=== PATIENT | male | born 1970 | race Caucasian/White ===

== ENCOUNTER 2016-10-10 15:05 | Emergency (ER) | payer OTHER ==
[~2016-10-10] VITALS: Ht 182.9 cm; Wt 103.6 kg
[~2016-10-10 15:05] MED LIST: DOCU-94 PO; LISI-725 PO; MAGN400T6 PO; VGR50 PO
[2016-10-10 15:09] VITALS: TEMP 36.7; Ht 182.9 cm; Wt 103.6 kg
[2016-10-10] MEDS ORDERED: SODIUM CHLORIDE 0.9% 1000ML 1,000 ML IV STA (15:28)
[2016-10-10] MEDS ORDERED: KETOROLAC TROMETHAMINE 30 MG/ML VIAL IV STA (15:28)
[2016-10-10] MEDS ORDERED: MULT-513 PO (15:35)
[2016-10-10 15:52] LABS: BASO % 0.1 %; BASO ABS # 0.01 K/uL (0-0.2); COMPLETE YES; EOS % 0.6 %; HEMATOCRIT 43.5 % (42-52); IG% 0.3 %; LYMPH % 5.7 %; LYMPH ABS # 0.44 K/uL (1.2-3.4); MEAN CELL VOLUME 90.8 fL (80-100); MEAN CORPUSCULAR HEMOGLOBIN 31.3 pg (25-34); MEAN CORPUSCULAR HGB CONC 34.5 g/dl (32-36); MEAN PLATELET VOLUME 9.5 fL (7.4-10.4); MONO % 5.2 %; NEUT % 88.1 %; PLATELET COUNT 245 K/uL (130-400); RED BLOOD COUNT 4.79 M/uL (4.7-6.1); WHITE BLOOD COUNT 7.74 K/uL (4.8-10.8)
[2016-10-10] MEDS ORDERED: IBUP-1050 PO (15:52)
[2016-10-10] MEDS ORDERED: MAGN400T7 PO (15:52)
[2016-10-10] MEDS ORDERED: VITA10004 PO (15:52)
[2016-10-10] MEDS ORDERED: IMT50 PO (15:52)
[2016-10-10] MEDS ORDERED: LSN20 PO (15:52)
[2016-10-10] MEDS ORDERED: SULF800T23 PO (15:52)
[2016-10-10 16:11] LABS: BUN/CREATININE RATIO 15.3 (10-20); CALCIUM 8.8 mg/dl (8.5-10.1); CREATININE 1.1 mg/dl (0.60-1.40); POTASSIUM 4.1 mmol/L (3.5-5.1)
--- NOTE | 2016-10-10 16:19 | EMERGENCY ROOM VISIT NOTE ---
History First contact with patient: 15:12 Chief Complaint: ILLNESS Stated Complaint: REFERRED TO CHECK SEPSIS INFECTION History of Present Illness The patient is a 46 year old male who presents to the Emergency Room with complaints of swelling and pain under his left axilla. The patient states that one week ago, he developed a lump under his left axilla. He states it gradually became larger and more painful over the week. He was seen at [facility] yesterday and prescribed Bactrim. He has also been taking ibuprofen for the pain. He states that this morning while at work, he began to feel weak. He has had joint aches. He has not had much of an appetite. He states that this morning, the lump "popped" and began to feel much better. He reports calling [facility] and they recommended that he come here to rule out sepsis. The patient denies any fevers. He denies any red streaking surrounding the lump. Review of Systems A complete 10 point review of systems was reviewed with the patient with pertinent positives and negatives as per history of present illness. All else were negative. Past Medical/Surgical History Medical Problems: (1) Hypertension Family History Hypertension Social History Smoking Status: Never Smoker Marital Status: Housing Status: lives with significant other Current/Historical Medications Scheduled Ibuprofen (Advil), 400 MG PO TID Lisinopril (Lisinopril), 20 MG PO DAILY Magnesium Oxide (Mg Supplement (Magnesium Oxide), 241.3 MG PO DAILY Multivitamins/Minerals (Mvi With Minerals), 1 TAB PO DAILY Sulfa/Trimethoprim (Bactrim Ds 800MG/160MG), 1 TAB PO BID Vitamin E (Vitamin E), 1,000 INTER.UNIT PO DAILY Scheduled PRN Sumatriptan Succinate (Sumatriptan Succinate), 50 MG PO UD PRN for Migraine Allergies Coded Allergies: Amoxicillin (Verified Allergy, Intermediate, Rash, 10/10/16) Physical Exam Vital Signs Date Time Temp Pulse Resp B/P (MAP) Pulse Ox O2 Delivery O2 Flow Rate FiO2 10/10/16 16:57 79 18 139/78 96 Room Air 10/10/16 15:09 36.7 85 18 133/82 99 Room Air Physical Exam VITALS: Vitals are noted on the nurse's note and reviewed by myself. Vital signs stable. GENERAL: This is a 46-year-old male, in no acute distress, nondiaphoretic, well- developed well-nourished. SKIN: There is an erythematous lump in the left axilla with mild induration. It is draining a small amount of purulent drainage centrally. NECK: Supple without nuchal rigidity. No lymphadenopathy. HEART: Regular rate and rhythm without murmurs gallops or rubs. LUNGS: Clear to auscultation bilaterally without wheezes, rales or rhonchi. . NEURO: Patient was alert and oriented to person place and time. Medical Decision & Procedures Laboratory Results 10/10/16 15:35 Red Blood Count 4.79, Mean Corpuscular Volume 90.8, Mean Corpuscular Hemoglobin 31.3, Mean Corpuscular Hemoglobin Concent 34.5, Mean Platelet Volume 9.5, Neutrophils (%) (Auto) 88.1, Lymphocytes (%) (Auto) 5.7, Monocytes (%) (Auto) 5.2, Eosinophils (%) (Auto) 0.6, Basophils (%) (Auto) 0.1, Neutrophils # (Auto) 6.82, Lymphocytes # (Auto) 0.44, Monocytes # (Auto) 0.40, Eosinophils # (Auto) 0.05, Basophils # (Auto) 0.01 10/10/16 15:35 Test 10/10/16 15:35 White Blood Count 7.74 K/uL (4.8-10.8) Red Blood Count 4.79 M/uL (4.7-6.1) Hemoglobin 15.0 g/dL (14.0-18.0) Hematocrit 43.5 % (42-52) Mean Corpuscular Volume 90.8 fL (80-100) Mean Corpuscular Hemoglobin 31.3 pg (25-34) Mean Corpuscular Hemoglobin Concent 34.5 g/dl (32-36) Platelet Count 245 K/uL (130-400) Mean Platelet Volume 9.5 fL (7.4-10.4) Neutrophils (%) (Auto) 88.1 % Lymphocytes (%) (Auto) 5.7 % Monocytes (%) (Auto) 5.2 % Eosinophils (%) (Auto) 0.6 % Basophils (%) (Auto) 0.1 % Neutrophils # (Auto) 6.82 K/uL (1.4-6.5) Lymphocytes # (Auto) 0.44 K/uL (1.2-3.4) Monocytes # (Auto) 0.40 K/uL (0.11-0.59) Eosinophils # (Auto) 0.05 K/uL (0-0.5) Basophils # (Auto) 0.01 K/uL (0-0.2) RDW Standard Deviation 43.6 fL (36.4-46.3) RDW Coefficient of Variation 13.2 % (11.5-14.5) Immature Granulocyte % (Auto) 0.3 % Immature Granulocyte # (Auto) 0.02 K/uL (0.00-0.02) Anion Gap 8.0 mmol/L (3-11) Est Creatinine Clear Calc Drug Dose 104.5 ml/min Estimated GFR () 92.8 Estimated GFR (Non- 80.1 BUN/Creatinine Ratio 15.3 (10-20) Lactic Acid Level 1.2 mmol/L (0.4-2.0) Calcium Level 8.8 mg/dl (8.5-10.1) Total Bilirubin 0.8 mg/dl (0.2-1) Direct Bilirubin 0.1 mg/dl (0-0.2) Aspartate Amino Transf (AST/SGOT) 19 U/L (15-37) Alanine Aminotransferase (ALT/SGPT) 47 U/L (12-78) Alkaline Phosphatase 77 U/L (45-117) Total Protein 7.7 gm/dl (6.4-8.2) Albumin 4.4 gm/dl (3.4-5.0) Medications Administered Medications (Trade) Dose Ordered Sig/Sha Route Start Time Stop Time Status Last Admin Dose Admin Sodium Chloride 1,000 ml @ 999 mls/hr Q1H1M STAT IV 10/10/16 15:28 10/10/16 16:28 DC 10/10/16 16:01 999 MLS/HR Ketorolac Tromethamine (Toradol Inj) 30 mg NOW STAT IV 10/10/16 15:28 17 15:31 DC 10/10/16 16:01 30 MG ED Course The patient was evaluated as above. Culture of the left axilla wound was obtained. Labs were drawn and IV access was obtained. Blood cultures x 2 were drawn. Patient was medicated with 1 liter NSS and 30 mg Toradol IV. Patient was reevaluated and findings were discussed. Discharge instructions were reviewed with the patient. The patient verbalized understanding of my assessment and treatment plan and was discharged home in good condition. Medical Decision Differential diagnosis includes lymphadenopathy, abscess, sepsis, cellulitis, malignancy, among others. The patient is a 46-year-old male who presents today complaining of swelling and pain in the left axilla. Exam shows a small abscess which appears to be actively draining. Culture was obtained and is pending. The patient was sent here for evaluation of possible sepsis. His vital signs are within normal limits. He is not tachycardic or hypotensive. He is afebrile. Labs revealed no leukocytosis or lactic acidosis. I do not feel that the patient is septic. He was instructed to continue the Bactrim as prescribed and apply warm compresses to the left axilla. He was instructed to follow-up with his primary care provider this week or return here if he does develop red streaking, fevers or new/concerning symptoms. The patient's case was reviewed with Dr. Almanzar, ED attending physician, who agreed with my assessment and treatment plan. Based on the patient's presentation and work up, I feel the patient is stable for outpatient treatment. The patient was educated to return to the emergency department for any worsening of their current condition or new/concerning symptoms. He will follow up with his PCP. Medication reconciliation: I attest that I have personally reviewed the patient 's current medication list. Blood pressure screening: Patient was found to have normal blood pressure on screening and does not require follow-up. Impression Primary Impression: Abscess of left axilla Departure Information Dispostion Home / Self-Care Condition GOOD Referrals Yuly Pruitt M.D. (PCP) Patient Instructions My [facility] Additional Instructions Continue the Bactrim as prescribed. For pain control, you can use the following [id number] medicines (if >12 yo): - Regular strength (325mg/tab) Tylenol (acetaminophen) 2 tabs every 4-6 hours as needed. Do not exceed 12 tablets in a 24 hour period. Avoid taking more than 4 grams (4000 mg) of Tylenol per day. This includes any other sources of acetaminophen you may take on a regular basis. - Regular strength (200 mg/tab) Advil (ibuprofen) 1-2 tabs every 4-6 hours as needed. Do not exceed a dose of 3200 mg per day. Follow-up with your primary care provider within 2 days for a recheck. Return to the emergency department with fevers, worsening redness/swelling, or any other new/concerning symptoms.
[2016-10-10 16:57] VITALS: BP 139/78; PULSE 79; O2SAT 96
== END 2016-10-10 17:07 | disposition home or self-care (01) ==
LOC: C.EDB 15:08
DX: L02.412 Cutaneous abscess of left axilla (principal); I10 Essential (primary) hypertension; Z82.49 Family history of ischemic heart disease and other diseases of the circulatory system; Z79.899 Other long term (current) drug therapy